=== PATIENT | female | born 1965 | race Caucasian/White ===

== ENCOUNTER 2020-01-08 17:44 | Emergency (ER) | payer OTHER, SELFPAY ==
[2020-01-08 19:43] VITALS: BP 115/67; PULSE 74; RESP 20; TEMP 36.7; O2SAT 97
[2020-01-08] MEDS: LIDO 2%/EPINEPHRINE 1:100,000 20 ML VIAL (20:28)
--- NOTE | 2020-01-08 20:45 | ED.WOUNDLAC ---
HPI - Wound/Laceration General Chief Complaint: Wound/Laceration Stated Complaint: lac to left leg Time Seen by Provider: 01/08/20 19:54 Source: patient Mode of arrival: ambulatory Limitations: no limitations History of Present Illness HPI narrative: Patient is a 54-year-old female who presents with a laceration of the left lower extremity that occurred earlier today after tripping over an object and lacerating the leg patient notes tetanus not up-to-date notes mild aching pain presents with large laceration of the amezquita patient denies other injuries or complaints related to the fall presents per private vehicle in no distress Related Data Home Medications Medication Instructions Recorded Confirmed albuterol sulfate 90 mcg/actuation 1 puff INHALATION Q4-6H PRN gm 04/08/19 aerosol inhaler Allergies Allergy/AdvReac Type Severity Reaction Status Date / Time No Known Allergies Allergy Unverified 01/08/20 19:50 Review of Systems Review of Systems: All systems reviewed & are unremarkable except as noted in HPI and below PMFSH Family History Family History (Updated 12/14/16 @ 13:58 by DOCTOR UNKNOWN) Other Carcinoma of colon Social History Social History Smoking status: Never smoker Second hand tobacco smoke exposure: No Alcohol intake: never Gender identity (if verbalized by the patient): Female Sexual Orientation (if Verbalized by the Patient): Straight or Heterosexual Exam Narrative: Exam Narrative: GENERAL: Well-appearing, well-nourished, and in no acute distress. HEAD: Normocephalic, atraumatic. EYES: PERRLA and EOMI. ENT: Nares clear, no rhinorrhea or epistaxis. Mucous membranes moist. EXTREMITIES: Normal range of motion. No edema. SKIN: Warm, dry, no rash. Patient with large irregular laceration of the left amezquita NEURO: No focal deficits. Alert and oriented x3. Neurovascularly intact. Capillary refill less than 2 seconds PSYCH: Normal mood and affect. Course Course Emergency Course: Patient in the room in no distress aware of case findings treatment plan and diagnosis Vital Signs Vital signs: Vital Signs Temperature 98.1 F 01/08/20 19:43 Pulse Rate 74 01/08/20 19:43 Respiratory Rate 20 01/08/20 19:43 Blood Pressure 115/67 01/08/20 19:43 Pulse Oximetry 97 01/08/20 19:43 Temperature 98.1 F 01/08/20 19:43 Pulse Rate 74 01/08/20 19:43 Respiratory Rate 20 01/08/20 19:43 Blood Pressure 115/67 01/08/20 19:43 Pulse Oximetry 97 01/08/20 19:43 Procedures Laceration Laceration 1: Date: 01/08/20 Time: 20:48 Site: lower extremity Side (If applicable): left Size (cm): 5 Description: irregular Depth: simple, single layer Local Anesthetic: lidocaine 1% Pre-repair: wound explored, irrigated and irrigated extensively ====== Skin Level ====== Skin layer closed with: nylon and dottie Size (cm): 4-0 Number of sutures: 25 ====== Subcutaneous Layer ====== ====== Muscle Layer ====== ====== Tendon Layer ====== MDM - Wound/Laceration MDM Narrative Medical decision making narrative: Patients injury or pain is consistent with musculoskeletal etiology. No signs of neurological or vascular compromise on exam. Compartments and tisues are soft without signs of compartment syndrome. Pain is felt appropriate for further evaluation on an outpatient basis. Wound closed in the emergency department Discharge Plan Discharge Clinical Impression: Laceration Patient Disposition: Home, Self-Care Condition: Stable Instructions: Antibiotic Form, Laceration (ED) Additional Instructions: Keep wound clean and dry. Do not soak, take baths, or swim until wound is completely healed. If any signs of infection such as redness, swelling, increasing pain, drainage of purulent discharge, streaks up your extremi
[2020-01-08] MEDS: TETANUS,DIPHTHERIA,AC PERTUSSIS ADULT (0.5 ML) BOOSTRIX IM (20:59)
[2020-01-08 21:05] VITALS: BP 118/73; PULSE 72; RESP 16; TEMP 36.6; O2SAT 99
== END 2020-01-08 21:05 | disposition home or self-care (01) ==
PROVIDERS: Emergency Provider Emergency Medicine; PCP Family Medicine
DX: S81.812A Laceration without foreign body, left lower leg, initial encounter (principal); W22.8XXA Striking against or struck by other objects, initial encounter; Z23 Encounter for immunization
CPT/HCPCS: 12002; 90471; 90715; 99282

== ENCOUNTER 2020-03-05 07:22 | Outpatient (RCR) | payer OTHER, SELFPAY ==
[2020-02-03 08:30] VITALS: BMI 41.7
== END 2020-04-13 12:38 | disposition home or self-care (01) ==
LOC: ANHWOC 07:22
PROVIDERS: PCP Family Medicine; Visit Provider Nurse Practitioner
DX: L03.116 Cellulitis of left lower limb (principal)
CPT/HCPCS: 99212; 99213; G0463

== ENCOUNTER 2022-07-14 00:46 | Day surgery (SDC) | payer OTHER, SELFPAY ==
[2022-07-01 08:50] VITALS: BMI 41.0
--- NOTE | 2022-07-13 14:20 | PM.HPGS ---
History of Present Illness History of Present Illness Consent: Risks, benefits, and alternatives have been discussed and questions answered. Patient agrees to proceed with procedure. Chief complaint: family hx colon ca Narrative: Chas Goodson is a 56 year old female Who was referred for colon cancer screening. Her father and brother had colon cancer. Review of Systems Review of Systems: All systems reviewed & are unremarkable except as noted in HPI and below PMFSH Past Medical History Medical History Cellulitis of left lower leg Dyslipidemia Mild intermittent asthma without complication Prediabetes Family History Family History Other Carcinoma of colon Social History Social History Smoking status: Never smoker Second hand tobacco smoke exposure: No Alcohol intake: current Alcohol use details: rare Substance use: never Substance use type: does not use Lack of Transportation: No Lack of Food: Never True Current Housing: I Have Housing Concerned About Future Housing: No Difficulty Paying Gas/Electric Bills: No Difficulty Paying for Meds: No Currently Unemployed: No Education: Master's Degree or Higher Difficulty w/ Childcare or Family Care: No Living arrangements: with family Occupation/Education: retired Gender identity (if verbalized by the patient): Female Sexual Orientation (if Verbalized by the Patient): Straight or Heterosexual Spiritual care concerns: No Agree to blood products: Yes Meds Home Medications and Allergies Home Medications Medication Instructions Recorded Confirmed Type albuterol sulfate 90 mcg/actuation 1 puff inhalation Q4-6H PRN short 04/04/22 07/01/22 Rx aerosol inhaler (ProAir HFA) #8.5 grams Allergies Allergy/AdvReac Type Severity Reaction Status Date / Time No Known Allergies Allergy Verified 07/14/22 08:22 Exam Const: General: alert Orientation/consciousness: patient oriented x3 Resp: Auscultation: clear to auscultation bilaterally Cardio: Rhythm: regular rhythm GI: GI Palp: Yes Soft to palpation and No Tenderness to palpation present (GI) Neuro: General: patient oriented x3 Assessment and Plan Assessment and plan (1) Colon cancer screening: Code(s): Z12.11 - Encounter for screening for malignant neoplasm of colon Status: Acute Assessment and Plan: Colonoscopy with possible biopsy or polypectomy or cautery or injection of substances.
[2022-07-14 08:23] VITALS: BP 128/77; PULSE 80; RESP 20; TEMP 35.8; O2SAT 100
[2022-07-14] MEDS: LACTATED RINGERS 1,000 ML 150 ML IV CONT (08:36)
--- NOTE | 2022-07-14 08:44 | P.PNAN_ITS ---
Anes - Initial Pre Proc Eval Procedure: Operation Date: 07/14/22 09:30 Proposed Procedures p Colonoscopy - Matt Davison MD Date/Time: 07/14/22 08:44 Surgeon: Matt Davison MD Pre Op Diagnosis: family hx colon ca Patient Data Age: 56 Gender: F Height: 1.6 m Weight: 109 kg Last Vital Signs Temp 96.4 F L 07/14/22 08:23 Pulse 80 07/14/22 08:23 Resp 20 07/14/22 08:23 BP 128/77 07/14/22 08:23 Pulse Ox 100 07/14/22 08:23 O2 Del Method Room Air 07/14/22 08:23 Allergies Allergy/AdvReac Type Severity Reaction Status Date / Time No Known Allergies Allergy Verified 07/14/22 08:22 Home Medications Medication Instructions Recorded Confirmed Type albuterol sulfate 90 mcg/actuation 1 puff inhalation Q4-6H PRN short 04/04/22 07/01/22 Rx aerosol inhaler (ProAir HFA) #8.5 grams Patient hx anesthesia problems: none Family hx anesthesia problems: none Results Review: All pre-operative results and documents have been reviewed as part of the pre- operative evaluation. [facility] Past Medical History Medical History Cellulitis of left lower leg Dyslipidemia Mild intermittent asthma without complication Prediabetes Family History Family History Other Carcinoma of colon Social History Social History Smoking status: Never smoker Second hand tobacco smoke exposure: No Alcohol intake: current Alcohol use details: rare Substance use: never Substance use type: does not use Lack of Transportation: No Lack of Food: Never True Current Housing: I Have Housing Concerned About Future Housing: No Difficulty Paying Gas/Electric Bills: No Difficulty Paying for Meds: No Currently Unemployed: No Education: Master's Degree or Higher Difficulty w/ Childcare or Family Care: No Living arrangements: with family Occupation/Education: retired Gender identity (if verbalized by the patient): Female Sexual Orientation (if Verbalized by the Patient): Straight or Heterosexual Spiritual care concerns: No Agree to blood products: Yes Anes - Eval Final PreProcedure Day of Procedure 07/14/22 08:44 Patient weight: morbidly obese Heart: regular rate and rhythm Lungs: clear to auscultation Airway: Mallampati scale class III Neurological: alert and oriented Last oral intake: >/= 8 hours ASA classification: III Emergent: no Anesthetic plan: proceed Anesthesia type and monitoring: general GIVS and standard monitoring Results Review: All pre-operative results and documents have been reviewed as part of the pre- operative evaluation. Informed Consent: The patient's anesthetic plan and its attendant risks and benefits were discussed with the patient/family/POA. Questions were solicited and answers provided to the satisfaction of the patient/family/POA.
[2022-07-14 09:42] VITALS: BP 119/69; PULSE 74; RESP 18; O2SAT 99
[2022-07-14 09:52] VITALS: BP 117/74; PULSE 71; RESP 18; O2SAT 100
[2022-07-14 10:02] VITALS: BP 130/78; PULSE 70; RESP 18; O2SAT 100
== END 2022-07-14 10:05 | disposition home or self-care (01) ==
PROVIDERS: PCP Family Medicine; Visit Provider Internal Medicine Gastroenterology
PROC: 0DJD8ZZ Inspection of Lower Intestinal Tract, Via Natural or Artificial Opening Endoscopic (ICD-10-PCS; CPT 45378; principal; 2022-07-14 09:30)
DX: Z12.11 Encounter for screening for malignant neoplasm of colon (principal); K57.30 Diverticulosis of large intestine without perforation or abscess without bleeding; Z80.0 Family history of malignant neoplasm of digestive organs; E78.5 Hyperlipidemia, unspecified; J45.20 Mild intermittent asthma, uncomplicated; R73.03 Prediabetes
CPT/HCPCS: 45378; J2704; J7120

== ENCOUNTER 2023-11-30 09:08 | Outpatient (CLI) | payer OTHER, SELFPAY ==
--- NOTE | ~2023-11-30 | XR_ITS ---
AP and lateral views of the right hip Clinical history: Pain Findings: No acute fracture or dislocation is seen. Osseous alignment is anatomic. Right hip joint is preserved. Soft tissues are unremarkable. Impression: No significant abnormality is seen. Reviewed, dictated and finalized at location M. Impression: No significant abnormality is seen.
--- NOTE | ~2023-11-30 | XR_ITS ---
XR abdomen/kub 1V Ordering provider: Leyda Burks DO History: . no injury right flank/ posterior hip and abd pain for 1 mo . Comparison: None. FINDINGS: BOWEL: Nonobstructive bowel gas pattern. ORGANOMEGALY: None. SIGNIFICANT PATHOLOGIC CALCIFICATIONS: None. OTHER: No free air is seen under the diaphragm. IMPRESSION: NO ACUTE ABDOMINAL FINDINGS. Reviewed, dictated and finalized at location A.
== END 2023-11-30 09:09 | disposition home or self-care (01) ==
PROVIDERS: PCP Family Medicine; Visit Provider Family Medicine
DX: M25.551 Pain in right hip (principal); R10.9 Unspecified abdominal pain
CPT/HCPCS: 73502; 74018

== ENCOUNTER 2024-06-25 12:16 | Outpatient (CLI) | payer OTHER, SELFPAY ==
--- NOTE | ~2024-06-25 | MM_ITS ---
EXAMINATION: MM screening steve BI w malini HISTORY: Screening mammogram TECHNIQUE: Craniocaudal and mediolateral oblique 3-D tomosynthesis images were obtained and synthetic 2-D images were generated. CAD analysis was submitted and interpreted. COMPARISON: 12/06/2017 BREAST PARENCHYMAL COMPOSITION:Not Dense. There are scattered areas of fibroglandular density. FINDINGS: Stable lower, central left breast mass, now with associated biopsy clip. No suspicious mass , calcification, or architectural distortion are identified in either breast to suggest malignancy. T here has been no suspicious interval change. IMPRESSION: No mammographic evidence of malignancy. Recommend routine screening mammography in one year. BI-RADS Category 2: Benign finding(s). Reviewed, dictated and finalized at location .
--- OUTSIDE RECORDS SUMMARY | 2024-06-25 13:18 | XMS_ITS | Data Portability ---
Author Organization [facility] [employer], Main Office Address [address] [place] [address] Assessment No assessment recorded. Plan of Treatment Reminders Order Date Submit Date Provider Last Modified By Organization Details Last Modified Time Details Appointments None recorded. Lab None recorded. Referral None recorded. Procedures None recorded. Surgeries None recorded. Imaging MAMMO, diagnostic , digital, bilateral 2022 023 [facility] Scheduling, [address] [facility], [address]th [address], [place], [address], 13:56:39 Medication Orders None recorded. Patient TargetsNo targets recorded. Patient InstructionsNo instructions recorded. Reason for Referral None Reported. Results Created Date Observation Date Name Description Value Unit Range Abnormal Flag Note LastModifiedBy Organization Detail LastModifiedTime 07/06/1907/06/2022 LIPID PANEL (REFL ) cholesterol, total 198 mg/dL <200 normal Not Available [facility] [place] [address] [place], [address], 07/06/2022 06:08:59 07/06/1907/06/2022 LIPID PANEL (REFL ) HDL cholesterol 59 mg/dL > or = 50 normal Not Available [facility] [address] [address] [place], [address], 07/06/2022 06:08:59 07/06/1907/06/2022 LIPID PANEL (REFL ) triglyceride s 79 mg/dL <150 normal Not Available [facility] [place] [address] [place], [address], 07/06/2022 06:08:59 07/06/1907/06/2022 LIPID PANEL (REFL ) LDL-choleste rol 121 mg/dL _(timothy c) high Refer ence range : <100 Lo able range <100 mg/dL for prima ry preve ntion ; <70 mg/dL for patie nts with CHD or diabe tic patie nts with > or = 2 CHD risk facto rs. LDL-C is now calcu lated using the Tamika n-Hop kins calcu yasmegan n, which is a valid ated novel metho d provi ding brennon r accur acy than the Fried crow equat ion in the estim ation of LDL-C . Tamika keen SS et al. JENNIFER. 2013; 310(1 9): 2061- 2068 (http ://ed ucati on.Qu ForMune. com/f aq/FA Q164) Not Available [facility] [address] [place], [address], 07/06/2022 06:08:59 07/06/1907/06/2022 LIPID PANEL (REFL ) chol/HDLC ratio 3.4 (calc ) <5.0 normal Not Available [facility] [address] [place], [address], 07/06/2022 06:08:59 07/06/1907/06/2022 LIPID PANEL (REFL ) non HDL cholesterol 139 mg/dL _(timothy c) <130 high For patie nts with diabe magan plus 1 major ASCVD risk facto r, treat ing to a non-H DL-C goal of <100 mg/dL (LDL- C of <70 mg/dL ) is consi dered a thera peuti c optio n. Not Available [facility] [address] [place], [address], 07/06/2022 06:08:59 07/06/1907/06/2022 COMPR EHENS GIANNA METAB OLIC PANEL glucose 100 mg/dL 65-99 high Fasti ng refer ence inter charley For someo ne witho ut known diabe magan, a gluco se value betwe en 100 and 125 mg/dL is consi stent with predi abete s and shoul d be confi rmed with a follo w-up test. Not Available [facility] [place] [address] [place], [address], 07/06/2022 06:09:00 07/06/19 23 07/06/2022 COMPR EHENS GIANNA METAB OLIC PANEL urea nitrogen (BUN) 13 mg/dL 7-25 normal Not Available [facility] [address] [place] [address] [place], [address], 07/06/2022 06:09:00 07/06/1907/06/2022 COMPR EHENS GAINNA METAB OLIC PANEL creatinine 0.83 mg/dL 0.50-1 .03 normal Not Available [facility] [address] [place] [address] [place], [address], 07/06/2022 06:09:00 07/06/1907/06/2022 COMPR EHENS GIANNA METAB OLIC PANEL eGFR 82 mL/mi n/1.7 3m2 > or = 60 normal The eGFR is based on the CKD-E PI 2020 equat ion. To calcu late the new eGFR from a previ ous Creat inine or Cysta clarita C resul t, go to https ://scott alva.carlos manuel steve/los hayward s/ kdoqi /gfr% 5Fcal culat or Not Available [address] [address] [place], [address], 07/06/2022 06:09:00 07/06/1907/06/2022 COMPR EHENS GIANNA METAB OLIC PANEL BUN/creatini ne ratio NOT APPLIC ABLE (calc ) 6-22 Not Available [facility] [address] [place] [address] [place], [address], 07/06/2022 06:09:00 07/06/1907/06/2022 COMPR EHENS GIANNA METAB OLIC PANEL sodium 136 mmol/ L 135-14 6 normal Not Available [facility] [place] [address] [place], [address], 07/06/2022 06:09:00 07/06/19 23 07/06/2022 COMPR EHENS GIANNA METAB OLIC PANEL potassium 4.5 mmol/ L 3.5-5. 3 normal Not Available [address], [address], 07/06/2022 06:09:00 07/06/1907/06/2022 COMPR EHENS GIANNA METAB OLIC PANEL chloride 103 mmol/ L 98-110 normal Not Available [address], [address], 07/06/2022 06:09:00 07/06/1907/06/2022 COMPR EHENS GIANNA METAB OLIC PANEL carbon dioxide 27 mmol/ L 20-32 normal Not Available [address], [address], 07/06/2022 06:09:00 07/06/1907/06/2022 COMPR EHENS GIANNA METAB OLIC PANEL calcium 9.1 mg/dL 8.6-10 .4 normal Not Available [address], [address], 07/06/2022 06:09:00 07/06/1907/06/2022 COMPR EHENS GIANNA METAB OLIC PANEL protein, total 6.5 g/dL 6.1-8. 1 normal Not Available [address], [address], 07/06/2022 06:09:00 07/06/1907/06/2022 COMPR EHENS GIANNA METAB OLIC PANEL albumin 4.0 g/dL 3.6-5. 1 normal Not Available [address], [address], 07/06/2022 06:09:00 07/06/1907/06/2022 COMPR EHENS GIANNA METAB OLIC PANEL globulin 2.5 g/dL_ (calc ) 1.9-3. 7 normal Not Available [address], [address], 07/06/2022 06:09:00 07/06/1907/06/2022 COMPR EHENS GIANNA METAB OLIC PANEL albumin/glob ulin ratio 1.6 (calc ) 1.0-2. 5 normal Not Available [address], [address], 07/06/2022 06:09:00 07/06/19 23 07/06/2022 COMPR EHENS GIANNA METAB OLIC PANEL bilirubin, total 0.5 mg/dL 0.2-1. 2 normal Not Available [address], [address], 07/06/2022 06:09:00 07/06/1907/06/2022 COMPR EHENS GIANNA METAB OLIC PANEL alkaline phosphatase 61 U/L 37-153 normal Not Available [address], [address], 07/06/2022 06:09:00 07/06/1907/06/2022 COMPR EHENS GIANNA METAB OLIC PANEL AST 20 U/L 10-35 normal Not Available [address], [address], 07/06/2022 06:09:00 07/06/1907/06/2022 COMPR EHENS GIANNA METAB OLIC PANEL ALT 16 U/L 6-29 normal Not Available [address], [address], 07/06/2022 06:09:00 08/11/1908/10/2022 MAMMO , diagn ostic , digit al, bilat eral No observ ation record ed. [email or web address] [facility] [address] [place], [address], 08/15/2022 10:41:42 Result Notes None recorded. Problems Name Problem SNOMED Code Status Onset Date Resolution Date Notes Provider Name and Address Organization Details Recorded Time Asthma 213687746 Active 2022 Not Available [employer] 3 01:53:26 Localized tenderness of breast 960712835 Active 2022 Toan Mcknight MD [address] [facility], [facility] [address], [place], [address] , [facility] [employer] [facility] [employer] 3 09:32:39 Problem Notes None recorded. Procedures Surgical History Date Name Laterality Status Provider Name and Address Organization Details Recorded Time 3 Colonoscopy completed Lex Burns RN [facility] [employer] [facility] 07/14/2022 12:36:45 Imaging Results Imaging Date Name Status LastModified by Organiz ation Details LastModified Time 08/10/2022 MAMMO, diagnostic, digital, bilateral completed [email or web address] [facility] [address] [place] [address], [address], 08/15/2022 10:41:42 Procedure Notes None recorded. Medical Equipment None Reported. Medications Name Sig Start Date Stop Date Status Note LastModified by Organization Details LastModified Time clobetasol 0.05 % topical ointment APPLY TO BACK TWICE DAILY FOR 2-3 WEEKS. 04/26 completed Not Available Not Available Not Available methylpredn isolone 4 mg tablets in a dose pack TAKE 6 TABLETS ON DAY 1 DIRECTED ON PACKAGE AND DECREASE BY 1 TAB EACH DAY FOR A TOTAL OF 6 DAYS 04/26 completed Not Available Not Available Not Available albuterol sulfate HFA 90 mcg/actuati on aerosol inhaler INHALE 2 PUFFS EVERY 4-6 HOURS NEEDED FOR SHORTNESS OF BREATH active Not Available Not Available No t Available Vitals Date Recorded Body mass index (BMI) Body height Oxygen saturation Oxygen saturation in Arterial blood by Pulse oximetry Heart rate Body temperature Body weight Systolic blood pressure Diastolic blood pressure Provider Name and Address Organization Details Last Updated DateTime 3 43.9 kg/m2 160.02 cm 97 % 97 % 97 /min 97.2 [degF] 295698. 91 g 126 mm[Hg] 90 mm[Hg] Not Available [facility] 3 01:53:16 Date Recorded Body height Body mass index (BMI) Body weight Body temperature Heart rate Oxygen saturation Oxygen saturation in Arterial blood by Pulse oximetry Systolic blood pressure Diastolic blood pressure Provider Name and Address Organization Details Last Updated DateTime 3 160.02 cm 43.9 kg/m2 790579. 91 g 97.8 [degF] 98 /min 98 % 98 % 140 mm[Hg] 80 mm[Hg] [facility] [employer] [facility] 3 09:21:48 Social History None recorded. Functional Status None recorded. Mental Status None recorded. Family History Relationship Description Onset Age of this Age Resolved Age Notes LastModified by Organization Details LastModified Time Father Family history of malignant neoplasm [id number] Not available 04/28/2022 01:53:05 Father Parkinson's disease [id number] Not available 04/28/2022 01:53:05 Medical History Condition Response BLINDNESS N RHEUMATIC FEVER N KIDNEY STONES N BLADDER PROBLEMS N MRSA N OTHER # 1 N POLIO N LUNG DISEASE/DISORDER N HISTORY OF DRUG ABUSE N COPD N RADIATION / CHEMOTHERAPY N Other # 2 N BLOOD DISEASES N SURGERY N EAR OR HEARING PROBLEMS N MUMPS N SHINGLES N BOWEL PROBLEMS N FEMALE PROBLEMS / INFECTIONS N DEPRESSION (INCLUDING POST ) N STROKE/TIA N THYROID DISEASE N ULCERS N BENIGN PROSTATIC HYPERPLASIA N MEASLES N CERVICALGIA N TB SKIN TEST N HYPOTENSION N MYOCARDIAL INFARCTION N OBESITY N PARAPELGIA N GERD/NAUSEA N ANEURYSM N URINARY/BLADDER/KIDNEY PROBLEMS N CORONARY ARTERY DISEASE (CAD) N MENIERE'S DISEASE N ADDICTION CONCERNS N ENDOMETRIOSIS N USE OF BLOOD THINNERS N SKIN PROBLEMS N EMPHYSEMA N GASTROINTESTINAL DISORDER N MUSCLE,JOINT OR BONE PROBLEMS N GASTROINTESTINAL BLEEDING N BLOOD CLOTS N ASTHMA Y CATARACTS N ERECTILE DYSFUNCTION N GI PROBLEMS N CHF N Low Testosterone N NEUROPATHY N INFERTILITY N AIDS/HIV N FRACTURES N CHEMOTHERAPY / RADIATION N VISION/EYE PROBLEMS N LIVER DISEASE N MALE HYPOGONADISM N HYPERTENSION N TOURETTE'S N ANXIETY DISORDER N BLOOD TRANSFUSION N ANEMIA/BLOOD DISORDER N CHRONIC EAR INFECTIONS N BRONCHITIS N TUBERCULOSIS N GLAUCOMA N FOOT PROBLEM N DIVERTICULITIS N CHICKENPOX N SLEEP APNEA N ALLERGIES/HAYFEVER N INFECTIOUS DISEASE N HEART ARRHYTHMIA N PROSTATE N INSOMNIA N HIGH CHOLESTEROL / HYPERLIPIDEMIA N HYPERTHYROIDISM N EYE PROBLEMS N EATING DISORDER N EDEMA N CHRONIC PAIN SYNDROME N CONSTIPATION N CAROTID BLOCKAGE N BACK / NECK PROBLEMS N HAVE YOU BEEN HOSPITALIZED OR SEEN IN [facility] IN THE PAST YEAR ? N ATHEROSCLEROSIS N BREAST PROBLEMS N DIALYSIS N ECZEMA N FIBROMYALGIA N OSTEOPOROSIS N ARTHRITIS N NO SIGNIFICANT PAST MEDICAL HISTORY N APPENDICITIS N DIABETES, TYPE N BAD TEETH N HEARTBURN / REFLUX N ADD/ADHD N AUTISM SPECTRUM DISORDER (ASD) N HEPATITIS / LIVER DISEASE N PULMONARY DISEASE N GOUT N SLEEP DISORDER N ALZHEIMER'S DISEASE N PAIN N HERPES N DEMENTIA N HEADACHES/MIGRAINES N SEIZURES/EPILEPSY N VASCULAR DISEASE N PACEMAKER N DIZZINESS N HEART DISEASE/HEART PROBLEMS N KIDNEY DISEASE N DEVELOPMENTAL OR BEHAVIORAL DISORDERS N MULTIPLE SCLEROSIS N SCARLET FEVER N MENTAL DISORDER/ILLNESS N CARDIAC ARRHYTHMIA N CANCER: SPECIFY N PNEUMONIA N ATRIAL FIBRILLATION N Gall Stones N PULMONARY EMBOLISM N AUTOIMMUNE DISEASE N Gynecological History Statement/Question Response Menses Monthly N STIs/STDs N How many live births 0 If Post Menopausal, Age at Menopause 43 Sexually Active? Y Obstetrics History GPAL:G 0 P 0 0 0 0 Immunizations Vaccine Type Date Status Note Provider Nam e and Address Organization Details Recorded Time COVID-19, mRNA, LNP-S, PF, 100 mcg/0.5mL dose or 50 mcg/0.25mL dose 02/15/2023 completed Gina Odonnell RN [facility], [facility] [employer] 02/16/2023 12:14:37 Past Encounters Encounter ID Performer Location Encounter Start Date Encounter Closed Date Diagnosis/Indication Diagnosis SNOMED-CT Code Diagnosis ICD10 Code Diagnosis Note [id number] [facility] Aparna schneider [address] [place] [address] 04/26/2022 00:00:00 04/26/2022 10:28:39 [id number] Toan Mcknight MD [facility] Aparna schneider [address] [place] [id number] 07/06/2022 09:13:07 07/06/2022 09:36:45 Localized tenderness of breast 883774764 N64.4 Health Concerns Section Related Observation LastModified by Organization Detai ls LastModified Time None Recorded Concern Status LastModified by Organization Details LastModified Time None Recorded Advance Directives Directive None Recorded Payers Encounter Date Sequence Insurance Name Policy Number Policy To Covered Member ID To Member ID Guarantor Name 07/06/2022 1 [facility] [id number] Chas Goodson Notes Date Note Type Note Provider Name and Address Organization Details Recorded Time 07/06/2022 text/html Here today for bruise on breast. Noticed it over the weekend and has been coming on and off x 1 year. Has a halo bruise. Last mammogram was 2018. No fmhx of breast cancer. Toan Mcknight MD [address] [place] [address], [place], [address], [place] [facility] 07/06/2022 21:10:30 OBGyn Episode No OBEpisode recorded.
== END 2024-06-25 12:17 | disposition home or self-care (01) ==
LOC: CHSIMG 12:17
PROVIDERS: PCP Family Medicine; Visit Provider Family Medicine
DX: Z12.31 Encounter for screening mammogram for malignant neoplasm of breast (principal)
CPT/HCPCS: 77063; 77067